=== PATIENT | male | born 1975 | race Two or more races ===

== ENCOUNTER 2019-02-06 03:26 | Emergency (ER) | payer MEDICAID, OTHER ==
[~2019-02-06] VITALS: Ht 172.7 cm; Wt 68.0 kg
[2019-02-06 03:30] VITALS: BP 134/89
[2019-02-06] MEDS ORDERED: IBUPROFEN 400 MG TABLET PO ONE (04:00)
[2019-02-06] MEDS ORDERED: IBUPROFEN 400 MG TABLET ONE (04:00)
== END 2019-02-06 04:09 | disposition home or self-care (01) ==
LOC: ER 03:29
DX: R51 Headache (principal); Z90.89 Acquired absence of other organs